=== PATIENT | male | born 1970 | race Caucasian/White ===

== ENCOUNTER 2021-07-06 16:09 | Observation (INO) | payer OTHER ==
[~2021-07-06] VITALS: Ht 172.7 cm; Wt 83.0 kg
[2021-07-06 16:24] LABS: BASOPHILS % 0.2 % (0.0-1.0); EOSINOPHILS # (AUTO) 0.3 (0.0-0.4); EOSINOPHILS % 2.9 % (0.0-6.0); HEMATOCRIT 40.2 % (38.2-49.6); HEMOGLOBIN 13.5 g/dL (14.0-18.0); LYMPHOCYTES # (AUTO) 2.2 (1.0-3.2); LYMPHOCYTES % 25.4 % (18.0-39.1); MEAN CORPUSCULAR HEMOGLOBIN 31.3 pg (28-32); MEAN CORPUSCULAR HGB CONC 33.6 g/dL (31-35); MEAN CORPUSCULAR VOLUME 93.1 fL (81-99); MONOCYTES # (AUTO) 0.6 (0.2-0.8); MONOCYTES % 7.4 % (4.4-11.3); NEUTROPHILS # (AUTO) 5.5 (2.1-6.9); NEUTROPHILS % 63.9 % (38.7-80.0); PLATELET COUNT 244 x10e3/uL (140-360); RED BLOOD COUNT 4.32 x10e6/uL (4.3-5.7); RED CELL DISTRIBUTION WIDTH 11.9 % (11.7-14.4)
[2021-07-06 16:46] LABS: ALBUMIN 4.5 g/dL (3.5-5.0); ALBUMIN/GLOBULIN RATIO 1.8 (0.8-2.0); ANION GAP 12.6 mmol/L (8-16); CALCIUM 9.4 mg/dL (8.4-10.2); CREATININE, SERUM 1.02 mg/dL (0.72-1.25); POTASSIUM 3.6 mmol/L (3.5-5.1)
[2021-07-06 16:52] LABS: CREATINE KINASE MB 0.8 ng/mL (0-5.0)
[2021-07-06] MEDS ORDERED: Morphine 4mg Syringe 4 MG/ML INJ IV PRN (18:15)
[2021-07-06] MEDS ORDERED: ONDANSETRON HCL INJ 2MG/ML 2ML 2 MG/ML VIAL IV PRN (18:15)
[2021-07-07] VITALS (11 sets, daily range): BP systolic 106–131; BP diastolic 72–89
[2021-07-07 01:05] LABS: CREATINE KINASE 60 IU/L (30-200)
[2021-07-07 06:27] LABS: CHOL/HDL RATIO 1.9 (3.9-4.7)
[2021-07-07] MEDS ORDERED: FENTANYL CITRATE/PF 100MCG/2 ML INJ ONE ×2 (07:32→08:25)
[2021-07-07] MEDS ORDERED: LIDOCAINE HCL 2% LOCAL 20 ML VIAL ONE (07:32)
[2021-07-07] MEDS ORDERED: MIDAZOLAM HCL 2 MG/2 ML VIAL ONE ×2 (07:32→08:25)
[2021-07-07] MEDS ORDERED: SODIUM CHLORIDE 0.9% 1000ML 1,000 ML ONE (07:33)
[2021-07-07] MEDS ORDERED: HEPARIN SOD/SOD CHLORIDE 2,000 ML ONE (07:33)
[2021-07-07] MEDS ORDERED: IOPAMIDOL 370 MG/ML 200 ML INFUS..BTL INJ ONE (07:33)
[2021-07-07] MEDS ORDERED: ASPIRIN 81 MG ENTERIC COATED PO SCH (09:00)
[2021-07-07] MEDS ORDERED: LAMICTAL100 MG PO (11:43)
[2021-07-07] MEDS ORDERED: MELOXICAM7.5 MG PO (11:43)
[2021-07-07] MEDS ORDERED: ALPRAZOLAM0.25 MG PO (11:43)
[2021-07-07] MEDS ORDERED: OMEPRAZOLE40 MG PO (11:43)
[2021-07-07] MEDS ORDERED: MULTI-VITAMIN1 EACH PO (11:43)
== END 2021-07-07 11:38 | disposition home or self-care (01) ==
LOC: ER 17:46 → ERHOLD 18:01
PROVIDERS: ADMIT Internal Medicine; ATTEND Internal Medicine
DX: I11.9 Hypertensive heart disease without heart failure (principal); E78.5 Hyperlipidemia, unspecified; K21.9 Gastro-esophageal reflux disease without esophagitis; F17.220 Nicotine dependence, chewing tobacco, uncomplicated; Z20.822 Contact with and (suspected) exposure to COVID-19; R94.39 Abnormal result of other cardiovascular function study
CPT/HCPCS: 36415 ×2; 71045; 80053; 80061; 82550 ×2; 82553 ×2; 84484 ×2; 85025; 93005; 93458; 94799; 99284; C1769; C1887; G0378 ×2; J2001; J2250; J3010; J7030; Q9967; U0002; 99152; 99153